=== PATIENT | male | born 1985 | race Caucasian/White ===

== ENCOUNTER 2019-03-21 13:27 | Inpatient (IN) ==
[2019-03-21] MEDS ORDERED: NS 1,000 ML IV ONE ×3 (13:44→15:34)
[2019-03-21 15:03] LABS: BASO# 0.08 X1000 (0.0-0.2); BASO% 0.4 % (0.0-0.8); EOS# 0.12 X1000 (0.0-0.7); EOS% 0.6 % (0.0-10.0); HEMATOCRIT 36.7 % (42.0-52.0); HEMOGLOBIN 12.1 g/dL (14.0-18.0); IMM GRAN% 0.9 % (0.0-0.5); LYMPH# 5.64 X1000 (1.2-3.4); LYMPH% 25.9 % (20.5-51.1); MCH 29.8 PG (27-31); MCV 90.4 FL (81-99); MONO# 1.97 X1000 (0.11-0.59); MONO% 9.1 % (1.7-9.3); MPV 10.1 FL (7.4-10.4); NEUT# 13.74 X1000 (1.4-6.5); NEUT% 63.1 % (42.2-75.2); PLT 510 X1000 (130-400); RBC 4.06 XMIL (4.7-6.1); RDW 13.4 % (11.5-14.5); WBC 21.75 X1000 (4.8-10.8)
[2019-03-21 15:06] LABS: INR 0.99; PROTIME 13.9 Seconds (11.0-16.0)
[2019-03-21 15:07] LABS: PTT 27.3 Seconds (22.3-41.8)
[2019-03-21 15:18] LABS: AGAP 14; ALB/GLOB RATIO 1.5; ALBUMIN 4.3 g/dL (3.5-5.0); ALKALINE PHOSPHATASE 76 U/L (32-122); BUN 41 mg/dL (8-22); CALCIUM 9.8 mg/dL (8.8-10.2); CHLORIDE 99 mmol/L (98-107); COSMO 287; ESTIMATED GFR > 60; GLUCOSE 116 mg/dL (70-104); GOT 23 U/L (10-34); GPT 40 U/L (10-44); POTASSIUM 4.8 mmol/L (3.5-5.1); SODIUM 138 mmol/L (136-145); TCO2 25 mmol/L (25-35); TOTAL BILIRUBIN 0.25 mg/dL (0.20-1.00); TOTAL PROTEIN 7.1 g/dL (6.3-8.3)
[2019-03-21] MEDS ORDERED: SODIUM CHLORIDE 0.9% INJ SCH (15:30)
[2019-03-21] MEDS ORDERED: ZOFRAN IV PRN (15:30)
[2019-03-21] MEDS ORDERED: NEXIUM IV SCH (15:30)
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
[2019-03-21 16:00] LABS: IRON SATURATION 41 %; TIBC 336 ug/dL; TOTAL IRON 138 ug/dL (53-167); UNBOUND IRON 198 ug/dL (112-346)
--- NOTE | 2019-03-21 16:07 | Diag Imaging Result Doc PS360 ---
EXAM: CT ABDOMEN/PELVIS W/O CONTRAST 03/21/2019 HISTORY: gib TECHNIQUE: This exam was performed using automated exposure control, adjustment of mA or kV according to patient size, and/or use of iterative reconstruction technique. COMMENT: There is a calcified node in the inferior left hilum. There are splenules in the left upper quadrant. There are some pancreatic calcifications which may be due to previous pancreatitis. The adrenal glands are not enlarged. There is no evidence of gallstones. There is some stool in the colon. The small bowel is not distended. The kidneys are without evidence of hydronephrosis or mass. The appendix is not distended. There is no evidence of free fluid or free air. The urinary bladder is unremarkable. There are some prominent ileocolic mesenteric nodes. The regional skeleton appears to be intact. IMPRESSION: Possible mesenteric adenitis, otherwise no evidence of acute intra-abdominal or pelvic disease. Electronically signed by Mirza Rae 03/21/2019 4:05 PM
[2019-03-21 16:16] LABS: FERRITIN 39 ng/mL (30-400)
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
[2019-03-21] MEDS: ULTRAM PO PRN ×2 (16:54→22:59)
[2019-03-21] MEDS ORDERED: NEXIUM IV ONE (17:15)
[2019-03-21] MEDS: NEXIUM 80 MG in NS 90 ML IV SCH (17:37)
[2019-03-21] MEDS: FIORICET PO PRN (19:41)
[2019-03-21] MEDS: CARAFATE LIQUID PO SCH (19:45)
[2019-03-21 21:09] LABS: HEMATOCRIT 27.5 % (42.0-52.0); HEMOGLOBIN 8.9 g/dL (14.0-18.0)
[2019-03-22] MEDS: CARAFATE LIQUID PO SCH ×4 (01:11→19:13)
[2019-03-22 02:12] LABS: HEMATOCRIT 29.1 % (42.0-52.0); HEMOGLOBIN 9.7 g/dL (14.0-18.0)
[2019-03-22] MEDS: NEXIUM 80 MG in NS 90 ML IV SCH ×2 (02:47→14:25)
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
[2019-03-22 06:15] LABS: BASO# 0.07 X1000 (0.0-0.2); BASO% 0.5 % (0.0-0.8); EOS# 0.16 X1000 (0.0-0.7); EOS% 1.1 % (0.0-10.0); HEMATOCRIT 28.3 % (42.0-52.0); HEMOGLOBIN 9.4 g/dL (14.0-18.0); IMM GRAN% 0.7 % (0.0-0.5); LYMPH# 7.13 X1000 (1.2-3.4); LYMPH% 48.1 % (20.5-51.1); MCHC 33.2 g/dL (33-37); MCV 90.4 FL (81-99); MONO# 1.45 X1000 (0.11-0.59); MONO% 9.8 % (1.7-9.3); MPV 9.6 FL (7.4-10.4); NEUT# 5.92 X1000 (1.4-6.5); NEUT% 39.8 % (42.2-75.2); PLT 380 X1000 (130-400); RBC 3.13 XMIL (4.7-6.1); RDW 13.3 % (11.5-14.5); WBC 14.83 X1000 (4.8-10.8)
[2019-03-22 06:27] LABS: INR 1.07; PROTIME 14.7 Seconds (11.0-16.0); PTT 32.3 Seconds (22.3-41.8)
[2019-03-22 06:51] LABS: FREE T4 1.32 ng/dL (0.93-1.70); TSH 2.59 uIUmL (0.27-4.20)
[2019-03-22 06:57] LABS: AGAP 9; ALB/GLOB RATIO 1.3; ALBUMIN 3.2 g/dL (3.5-5.0); ALKALINE PHOSPHATASE 55 U/L (32-122); BUN 24 mg/dL (8-22); CHLORIDE 106 mmol/L (98-107); COSMO 281; CREATININE 0.9 mg/dL (0.7-1.2); ESTIMATED GFR > 60; GLUCOSE 91 mg/dL (70-104); GOT 20 U/L (10-34); GPT 28 U/L (10-44); MAGNESIUM 1.7 mg/dL (1.5-2.7); POTASSIUM 4.3 mmol/L (3.5-5.1); SODIUM 139 mmol/L (136-145); TCO2 24 mmol/L (25-35); TOTAL BILIRUBIN 0.36 mg/dL (0.20-1.00); TOTAL PROTEIN 5.6 g/dL (6.3-8.3)
[2019-03-22 08:05] LABS: HEMATOCRIT 28.8 % (42.0-52.0); HEMOGLOBIN 9.5 g/dL (14.0-18.0)
[2019-03-22] MEDS: FIORICET PO PRN ×3 (08:17→19:15)
[2019-03-22] MEDS: ULTRAM PO PRN ×3 (09:32→23:01)
--- NOTE | 2019-03-22 09:56 | PROGRESS NOTE ---
DATE: 03/22/2019 SUBJECTIVE: Mr. Sun said he had a pretty good night. He remains afebrile. OBJECTIVE: Vital Signs: Temperature 98.5 degrees, pulse 90, respirations 13, blood pressure 118/74. Eyes: Pupils are equal and round. Lungs: Lungs are clear in all lung pfeiffer. Cardiovascular exam: Regular rhythm and rate without murmur or S3. Abdomen: Abdomen is soft. Skin: Skin is warm and dry. : Urine output is 1300 mL. LABS AND X-RAYS: His hematocrit was 28, was 36 yesterday. Hemoglobin dropped from 12 to 9. I think they are planning on an EGD today. ASSESSMENT AND PLAN: 1. Suspect upper gastrointestinal bleed related to nonsteroidal anti-inflammatories and Goody Powders. He is on Carafate and he is on proton pump inhibitor. Nexium 40 mg intravenous every 12 hours. Plan is for esophagogastroduodenoscopy today. 2. History of neck pain, chronic, and head pain as well. We will try some Fioricet for his headache and try tramadol for his neck pain. 3. History of hepatitis C. Not sure where we are as far as treated. Discuss that with the patient. cc: Ze Garcia MD
[2019-03-22] MEDS ORDERED: XYLOCAINE-MPF 2% ONE (10:47)
[2019-03-22] MEDS ORDERED: DIPRIVAN 1% ONE ×3 (10:47→11:05)
[2019-03-22] MEDS ORDERED: EPINEPHRINE SYRINGE ONE (10:57)
--- NOTE | 2019-03-22 13:29 | OPERATIVE NOTE ---
PROCEDURE DATE: 03/22/2019 PROCEDURE: Esophagogastroduodenoscopy and hemostasis of bleeding duodenal ulcer. PREOPERATIVE DIAGNOSIS: Upper GI bleed. POSTOPERATIVE DIAGNOSES: Large deep duodenal ulcer with visible vessel, cauterized. DESCRIPTION OF PROCEDURE: After informed consent and adequate intravenous sedation, the scope introduced through the esophagus which is normal all the way to the stomach and is normal. In the channel, there is a superficial ulcer not bleeding, however in the duodenum, there is a deep duodenal ulcer with visible vessel, which is quite large and appears to be a branch of gastroduodenal artery which is injected with epinephrine, and cauterized until it is thoroughly coagulated. It was lavaged several times, and we could not induce any seepage or leak or any further bleeding. We were satisfied. The scope was withdrawn. The patient tolerated the procedure without any complications. RECOMMENDATIONS: PPI and Carafate combination. Follow-up in our office in 1 month. He needs to be on the medicine for at least 6 months. We will talk to him about alternative to aspirin including headache medicine for his head injury and migraines. cc: Kirti Diane MD
[2019-03-22 15:03] LABS: HEMATOCRIT 28.6 % (42.0-52.0); HEMOGLOBIN 9.4 g/dL (14.0-18.0)
[2019-03-22 20:45] LABS: HEMATOCRIT 27.3 % (42.0-52.0); HEMOGLOBIN 8.9 g/dL (14.0-18.0)
[2019-03-23] MEDS: NEXIUM 80 MG in NS 90 ML IV SCH ×3 (00:30→19:12)
[2019-03-23] MEDS: CARAFATE LIQUID PO SCH ×4 (01:03→19:12)
[2019-03-23 06:17] LABS: HEMATOCRIT 26.9 % (42.0-52.0); HEMOGLOBIN 8.9 g/dL (14.0-18.0); MCHC 33.1 g/dL (33-37); MCV 90.6 FL (81-99); MPV 9.5 FL (7.4-10.4); RBC 2.97 XMIL (4.7-6.1); RDW 13.3 % (11.5-14.5); WBC 13.4 X1000 (4.8-10.8)
[2019-03-23 06:50] LABS: AGAP 10; ALB/GLOB RATIO 1.4; ALBUMIN 3.4 g/dL (3.5-5.0); ALKALINE PHOSPHATASE 57 U/L (32-122); BUN 11 mg/dL (8-22); CALCIUM 8.4 mg/dL (8.8-10.2); CHLORIDE 107 mmol/L (98-107); COSMO 282; ESTIMATED GFR > 60; GLUCOSE 97 mg/dL (70-104); GOT 22 U/L (10-34); GPT 31 U/L (10-44); POTASSIUM 3.9 mmol/L (3.5-5.1); SODIUM 142 mmol/L (136-145); TCO2 25 mmol/L (25-35); TOTAL BILIRUBIN 0.21 mg/dL (0.20-1.00); TOTAL PROTEIN 5.9 g/dL (6.3-8.3)
[2019-03-23] MEDS ORDERED: NS 250 ML ONE ×2 (06:56→07:49)
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
[2019-03-23] MEDS: ULTRAM PO PRN ×2 (09:00→20:42)
[2019-03-23] MEDS: FIORICET PO PRN ×2 (11:11→15:36)
[2019-03-24] MEDS: CARAFATE LIQUID PO SCH ×4 (02:07→21:05)
[2019-03-24] MEDS: NEXIUM 80 MG in NS 90 ML IV SCH ×2 (05:14→16:41)
[2019-03-24] MEDS: FIORICET PO PRN ×3 (08:24→22:52)
[2019-03-24] MEDS: ULTRAM PO PRN ×2 (12:50→19:28)
--- NOTE | 2019-03-24 16:01 | PROGRESS NOTE ---
DATE: 03/24/2019 SUBJECTIVE: Mr. Sun is feeling better. He still has his headache and neck pain. He would like to advance his diet, so I think we can move him to the floor. OBJECTIVE: Vital Signs: Temperature 98.3 degrees, pulse 94, and respirations 18, blood pressure 119/66. HEENT: Pupils are equal and round. Lungs: Clear in all lung pfeiffer. Cardiovascular: Regular rhythm and rate without murmur or S3. DIAGNOSTIC DATA: Urine output 2400 mL. ASSESSMENT AND PLAN: 1. Upper gastrointestinal bleed, duodenal ulcer. He is on high-dose proton pump inhibitors and Carafate, improving. Advance his diet. Maybe can go home soon. 2. Neck pain, chronic. Cervical neck fusion. Tramadol seems to be helping. 3. History of hepatitis C. 4. History of headaches. I think Fioricet is helping a little bit. 5. Lab: Hemoglobin was 8.9, hematocrit 26, MCV of 90, white count 13,400. Electrolytes reviewed from yesterday. 6. Review of his orders. I do not see any change. cc: Ze Garcia MD
[2019-03-25] MEDS: ULTRAM PO PRN ×2 (01:32→08:35)
[2019-03-25] MEDS: CARAFATE LIQUID PO SCH ×3 (01:32→14:40)
[2019-03-25] MEDS: NEXIUM 80 MG in NS 90 ML IV SCH ×2 (03:51→12:37)
[2019-03-25] MEDS: FIORICET PO PRN ×2 (07:21→14:43)
[2019-03-25 11:18] VITALS: BP 115/67
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
--- NOTE | 2019-03-26 15:52 | EKG Report ---
Test Performed on : 03/21/2019 1:58:23 PM Test Reason : ER Blood Pressure : / mmHG Vent. Rate : 133 BPM Atrial Rate : 133 BPM P-R Int : 126 ms QRS Dur : 082 ms QT Int : 298 ms P-R-T Axes : 046 067 034 degrees QTc Int : 443 ms Sinus tachycardia. Otherwise normal ECG No previous ECGs available Unconfirmed Result
== END 2019-03-25 15:02 | disposition home or self-care (01) | DRG 379 ==
LOC: ED 13:27 → ICU 16:12 → 4N 03-24 12:23
PROVIDERS: ATTEND Emergency Medicine
PROC: EN.HEAT (2019-03-22 10:54)
CPT/HCPCS: 36430; 74176; 80053; 82270; 82533; 82607; 82728; 82746; 83540; 83550; 83735; 84439; 84443; 85014; 85018; 85025; 85027; 85610; 85730; 86850; 86900; 86901; 86920; 93005; 99284; A9270; J0171; J7030; J7050; P9016